=== PATIENT | male | born 1955 | race Caucasian/White ===

== ENCOUNTER 2023-04-27 12:48 | Emergency (ER) | payer MEDICARE, BC, SELFPAY ==
[2023-04-27 12:56] VITALS: BP 122/67; PULSE 63; RESP 16; TEMP 36.4; O2SAT 97; BMI 26.8
--- NOTE | 2023-04-27 14:15 | CRLHL7_ITS ---
For Patients: As a result of the Century Cures Act, medical imaging exams and procedure reports are released immediately into your electronic medical record. You may view this report before your referring provider. If you have questions, please contact your health care provider. INDICATION: Leg pain and swelling TECHNIQUE: Ultrasound venous duplex lower right extremity. Compression venous exam was performed using evans-scale, color Doppler, and spectral Doppler imaging. COMPARISON: Ultrasound 08/21/2021 FINDINGS: Sonographic imaging demonstrates the right common femoral, deep femoral, superficial femoral, popliteal, posterior tibial and greater saphenous and the contralateral left common femoral veins to be fully compressible with normal color Doppler blood flow. Hypoechoic avascular structure measuring 4.4 x 2.8 x 1.4 centimeters with adjacent fluid extending into the calf. IMPRESSION: 1. No evidence of deep venous thrombosis right lower extremity. 2. Complex Greenwood`s cyst with some adjacent fluid tracking into the calf suspicious for Greenwood`s cyst rupture. Dictated by Kenneth Lazaro MD @ 04/27/2023 3:20:53 PM (Electronically Signed)
--- NOTE | 2023-04-27 14:16 | ED_ITS ---
HPI - General Adult General Time Seen by Provider: 14:16 Date Seen: 04/27/23 Chief complaint: Extremity Pain/Injury, Lower Stated complaint: R calf swollen Time Seen by Provider: 04/27/23 14:09 Source: patient and RN notes reviewed Mode of arrival: ambulatory Limitations: no limitations History of Present Illness HPI narrative: Patient is a 67-year-old male coming in with right calf swelling and some discomfort. He did do some recent hiking but had no known trauma. He is almost 2 years out from a right knee replacement, will sometimes have some residual right knee swelling but notes no knee pain with this. There is a little pain in the popliteal fossa when he straightens his leg out and dorsiflex is his foot. He has had no fevers chills. There is no chest pain, no palpitations, no sense of shortness of breath. He is on no blood thinners, has never had a history of any thromboembolic disease before. Patient does note that he cut his blood pressure medicine in half as he was getting lightheaded and dizzy with standing up. This improved with cutting the medicine in half. Related Data Home Medications Medication Instructions Recorded Confirmed atorvastatin 10 mg tablet 10 mg PO DAILY 04/27/23 04/27/23 lisinopril 20 1 tab PO DAILY 04/27/23 04/27/23 mg-hydrochlorothiazide 25 mg tablet Allergies Allergy/AdvReac Type Severity Reaction Status Date / Time No Known Drug Allergies Allergy Verified 04/27/23 13:01 Review of Systems Narrative: As per HPI. PFSH PFSH Social History Smoking Status: Former smoker Second hand tobacco smoke exposure: No How often do you have a drink containing alcohol: never How often do you have six or more drinks on one occasion: Never AUDIT-C Alcohol total score: 0 Non-prescribed substance use: denies use service: No Exam Const: Vital Signs, click to edit/add: Vital Signs - 24 hr 04/27/23 12:56 04/27/23 15:06 Temperature 97.5 F L Pulse Rate [Pulse Oximeter] 63 57 L Respiratory Rate 16 18 Blood Pressure [Ri ght Upper Arm] 122/67 116/72 Pulse Oximetry 97 98 Oxygen Delivery Me thod Room Air Room Air Patient is a 67-year-old male that is alert interactive no apparent distress, sitting up on the edge of the bed. Face atraumatic. Neck supple no jugular venous distension noted. Lungs are clear, good air entry, no wheezing or crackles, able speak in complete sentences. CV regular rate and rhythm, no murmur, normal S1 and S2. On inspection of his lower extremities, note some non thrombosed varicosities of the left lower extremity. His right lower extremity from the knee and below looks just mildly more large than the left. There is not definitive pitting edema over the leg but indeed does seem to have a little bit more fullness. I cannot say he has a positive Homans sign. There is no popliteal mass that I can palpate, no significant tenderness. Normal sensation. There is no significant erythema that would suggest any cellulitis. Documenting provider has reviewed patient's vital signs: yes Course Course ED Course: Will obtain ultrasound for this patient of his right lower extremity. The ultrasound is negative for thromboembolic disease, did discuss with patient follow up with Orthopedics as this could be musculoskeletal. Alternatively, if ultrasound is negative, could be some developing peripheral edema on the right side, potentially more risk for development of this as he has had surgery on this knee. If there is thromboembolic disease, will discuss anticoagulation with him. Reevaluation(s) Time of Reevaluation #1: 15:13 Reevaluation #1: Patient is advised of the preliminary social professionals reports that this is ruptured Greenwood cyst. There is no evidence of DVT. Vital Signs Vital signs: Initial Vital Signs Temperature 97.5 F L 04/27/23 12:56 Temperature Source Temporal Artery Scan 04/27/23 12:56 Pulse Rate 63 04/27/23 12:56 Respiratory Rate 16 04/27/23 12:56 Blood Pressure 122/67 04/27/23 12:56 Blood Pressure Mean 85 04/27/23 12:56 Blood Pressure Position Supine 04/27/23 12:56 Pulse Oximetry 97 04/27/23 12:56 Oxygen Delivery Method Room Air 04/27/23 12:56 Vital Signs Temperature 97.5 F L 04/27/23 12:56 Pulse Rate 63 04/27/23 12:56 Respiratory Rate 16 04/27/23 12:56 Blood Pressure 122/67 04/27/23 12:56 Pulse Oximetry 97 09/12/23 12:56 Oxygen Delivery Method Room Air 04/27/23 12:56 Temperature 97.5 F L 04/27/23 12:56 Pulse Rate 57 L 04/27/23 15:06 Respiratory Rate 18 04/27/23 15:06 Blood Pressure 116/72 04/27/23 15:06 Pulse Oximetry 98 04/27/23 15:06 Oxygen Delivery Method Room Air 04/27/23 15:06 Medical Decision Making Imaging Data Venous US: Attestation: I have reviewed the pertinent imaging results. Radiologist's impression: Patient: GEOVANNA CONNER Facility:?[facility] Patient ID:?[id number] Site Patient ID:?[id number]. Site :?[id number] Study:?US Extremity Right LEV RT-04/27/2023 3:07:10 PM Ordering Physician:Glen Ames Final Report: INDICATION: Leg pain and swelling TECHNIQUE: Ultrasound venous duplex lower right extremity. Compression venous exam was performed using evans-scale, color Doppler, and spectral Doppler imaging. COMPARISON: Ultrasound 08/21/2021 FINDINGS: Sonographic imaging demonstrates the right common femoral, deep femoral, superficial femoral, popliteal, posterior tibial and greater saphenous and the contralateral left common femoral veins to be fully compressible with normal color Doppler blood flow. Hypoechoic avascular structure measuring 4.4 x 2.8 x 1.4 centimeters with adjacent fluid extending into the calf. IMPRESSION: 1. No evidence of deep venous thrombosis right lower extremity. 2. Complex Greenwood`s cyst with some adjacent fluid tracking into the calf suspicious for Greenwood`s cyst rupture. Dictated by Kenneth Lazaro MD @ 04/27/2023 3:20:53 PM (Electronic Signature) Critical Care Time Critical Care Time Critical Care Time: No Discharge Plan Discharge Clinical Impression: Ruptured Bakers cyst Patient Disposition: Home, Self-Care Condition: Stable Instructions: Greenwood Cyst (ED) Additional Instructions: Can use Tylenol and ibuprofen per bottle directions for any discomfort. Do recommend ice and elevation to help decrease the swelling. If you have ongoing concerns or problems, contact Orthopedic office to get scheduled for further evaluation and treatment. Phone number is [phone]. Activity Level: Activity as Tolerated Prescriptions: No Action atorvastatin 10 mg tablet 10 mg PO DAILY lisinopril-hydrochlorothiazide 20-25 mg tablet 1 tab PO DAILY Follow Up/Referrals: Provider,Not a Local [Primary Care Provider] - Stand Alone Forms: [facility] [employer] Info Instructions
[2023-04-27 15:06] VITALS: BP 116/72; PULSE 57; RESP 18; O2SAT 98
== END 2023-04-27 15:33 | disposition home or self-care (01) ==
PROVIDERS: Emergency Provider Family Medicine
DX: M66.0 Rupture of popliteal cyst (principal)
CPT/HCPCS: 93971; 99283; 99284